=== PATIENT | male | born 1945 | race Caucasian/White ===

== ENCOUNTER 2020-05-01 11:18 | Outpatient (CLI) | payer MEDICARE, BC ==
[2020-05-01] MEDS ORDERED: Magnevist 469MG/ML 20 ML VIAL ONE (13:16)
--- NOTE | 2020-05-01 14:19 | MRI ---
MRI of thebrain with and without contrast: 05/01/2020 COMPARISON:07/04/2015 HISTORY:Melanoma, assess for intracranial metastatic disease TECHNIQUE: Multiplanar multisequence MR imaging of thebrain with and without contrast Findings:The diffusion weighted imaging demonstrates no evidence for acute infarction. The axial gradient echo imaging demonstrates no evidence for intracranial hemorrhage. There is a punctate focus of blooming artifact within the medial aspect of the parietal lobe posterio rly on the left with no corresponding FLAIR or T2 signal abnormality. No enhancement is seen in this region. This is favored to represent an area of calcification or could be associated with remote hemorrhage. The imaged paranasal sinuses and mastoid air cells demonstrate no signal abnormality. Arterial flow v oids at the axial level of the skull base are unremarkable on the T2-weighted imaging. Postcontrast imaging demonstrates no abnormal enhancement within the brain parenchyma to suggest the presence of intra-axial metastatic disease. Regional bone marrow signal intensity appears grossly unremarkable. IMPRESSION:No evidence for intracranial metastatic disease.
--- NOTE | 2020-05-01 18:49 | PET ---
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 Metastatic disease. Initial staging. FINDINGS: Mild, diffuse hazy uptake throughout each lung likely correlates with tiny innumerable nodu les involving each lobe of each lung. The focus of greatest radiotracer uptake is at the posterior aspect of the left upper lobe max SUV 3.4. A nonenlarged subcarinal mediastinal lymph node shows max SUV 8.3. There are innumerable masses throughout the liver with increased radiotracer uptake, the largest and most intense abnormality of the liver is at the posterior aspect of the right lobe dome max SUV 13.5. An enlarged lymph node at the peripancreatic level, immediately posterior to the pancreatic hea d, shows max SUV 18.9. Within the posterior musculature of the right thigh, a small hyperintense focus at the lateral aspect of the biceps femoris shows max SUV 4.7 and within the right semimembranosus muscle max SUV 3.2. Extensive widespread hypermetabolic activity is present throughout the skeleton, including the thorac olumbar spine. Most of the vertebrae are involved. The area of most intense uptake involves the T4 vertebral body max SUV 6.0. While this list of skeletal lesions is incomplete, the areas of most conspicuous and hyper intense ac tivity are as follows (max SUV): Right humeral neck (7.1) Left humeral neck (4.6) Left humeral shaft distal (4.5) Manubrium right side (4.5) Sacrum right side (4.4) Right acetabulum superior (4.1) Right acetabulum posterior/inferior (7.2) Left acetabulum (3.6) Left ischium (4.8) IMPRESSION : Extensive widespread metastatic disease involving the lungs, mediastinum, liver and abdominal lymph n odes, skeleton, and right thigh musculature.
== END 2020-05-01 11:19 | disposition home or self-care (01) ==
LOC: PET 11:18
PROVIDERS: ATTEND Internal Medicine Hematology & Oncology
DX: C43.9 Malignant melanoma of skin, unspecified (principal); C78.02 Secondary malignant neoplasm of left lung; C78.01 Secondary malignant neoplasm of right lung; C78.7 Secondary malignant neoplasm of liver and intrahepatic bile duct; C77.2 Secondary and unspecified malignant neoplasm of intra-abdominal lymph nodes; C78.1 Secondary malignant neoplasm of mediastinum; C79.89 Secondary malignant neoplasm of other specified sites
CPT/HCPCS: 70553; 78816; A9552

== ENCOUNTER 2020-06-07 01:15 | Inpatient (IN) | payer MEDICARE, BC ==
[2020-06-07 18:02] LABS: #Basophils 0.1 thou/uL (0.0-0.2); #Eosinphils 0.5 thou/uL (0.0-0.7); #Lymphocytes 1.8 thou/uL (1.20-3.40); #Monocytes 1.1 thou/uL (0.11-0.59); #Neutrophils 7.5 thou/uL (1.40-6.50); %Basophils 0.8 % (0.0-1.0); %Eosinophils 4.2 % (0.0-10.0); %Lymphocytes 16.4 % (21.0-51.0); %Monocytes 9.8 % (0.0-10.0); %Neutrophils 68.8 % (42.0-75.0); Hemoglobin 10.3 g/dL (14.0-18.0); Mean Corpuscular HGB CONC 33.1 g/dL (32.0-36.0); Mean Corpuscular Hemoglobin 30.2 pg (27.0-31.0); Mean Corpuscular Volume 91.1 fL (78.0-98.0); Mean Platelet Volume 8.6 fL (7.4-10.4); Platelet Count 331 thou/uL (130-400); RBC Distribution Width 18.5 % (11.5-14.5); Red Blood Cell (RBC) Count 3.42 mill/uL (4.70-6.10); White Blood Cell (WBC) Count 10.9 thou/uL (4.8-10.8)
[2020-06-07 18:28] LABS: Magnesium 2.9 mg/dL (1.6-2.6)
[2020-06-07] MEDS ORDERED: HYDROcodone/Acetaminophen 7.5/325 mg Tablet PO PRN (18:28)
[2020-06-07] MEDS ORDERED: HYDROcodone/Acetaminophen 5/325 mg Tablet PO PRN (18:28)
[2020-06-07 18:40] LABS: Bacteria/HPF None Seen HPF (None Seen); Bilirubin Negative (Negative); Blood, Urine Negative (Negative); Clarity Clear (Clear); Glucose, Urine (Dipstick) Normal (Negative); Ketone, Urine Negative (Negative); Leukocyte Negative Leu/uL (Negative); Nitrite Negative (Negative); Protein, Urine (Dipstick) 30 mg/dL (Neg-Trace); RBC/HPF 0-3 HPF (0-3); Specific Gravity, Urine 1.019 (1.002-1.036); Squamous Epithelial 0-3 HPF (0-3); Urobilinogen Normal mg/dL (Less than 2); WBC/HPF 0-3 HPF (0-3); pH, Urine 5.5 (5.0-9.0)
[2020-06-07 20:26] VITALS: BMI 23.2
--- NOTE | 2020-06-07 20:34 | HP ---
CHIEF COMPLAINT: Abnormal labs. HISTORY OF PRESENT ILLNESS: A 75-year-old male with a history of melanoma diagnosed roughly seven years ago on the top of the skull, being treated now, presenting with metastatic melanoma that was diagnosed roughly five weeks ago, metastases to the spine, liver, spleen, and lungs. He is undergoing chemo. He is unsure how many chemo he has done this last five weeks. Because of the generalized weakness, he came to the cancer clinic and I believe Dr. Abraham seen him this afternoon because of the abnormalities. He is being transferred to the ER and will be admitted for tumor lysis syndrome. His electrolytes labs are significant for potassium of 6, creatinine 2.5, calcium of 5.7, phosphorus of 5.5. His uric acid is 12.6. He has received rasburicase one time dose in the ER. I am admitting him for further management. The patient for the last seven days is quite nauseated, not much p.o. intake, no appetite. REVIEW OF SYSTEMS: He did not have any fever, night sweats, or chills. No chest pain, productive cough. He is nauseated, but no abdominal pain. No constipation, diarrhea, hematuria, dysuria, or hematochezia. Denies headache, tingling, numbness, or blurriness in his extremities. ALLERGIES: HE IS ALLERGIC TO CLINDAMYCIN AND LEVAQUIN. PAST MEDICAL HISTORY: Melanoma diagnosed seven years ago on the top of the skull. Now recently five weeks ago, he was diagnosed with metastatic melanoma with metastases to the spine, liver, lungs, and spleen. MEDICATIONS: 1. Coenzyme Q10 of 200 mg daily. 2. Omeprazole 40 mg daily. 3. Triamterene/hydrochlorothiazide 37.5/25 tablet daily. 4. Omeprazole 40 mg daily. 5. Lisinopril 10 mg daily. 6. Levothyroxine 50 mcg daily. 7. Plavix 75 mg daily. 8. Celecoxib. 9. Coreg 12.5 daily. 10. Lipitor 80 mg daily. SOCIAL HISTORY: The patient does not smoke or drink alcohol. He lives with his ex-. FAMILY HISTORY: Noncontributory. PHYSICAL EXAMINATION: VITAL SIGNS: He is afebrile, normotensive. He is saturating 95% on the room air. GENERAL: He is ill looking, but very pleasant, conversational. HEENT: Pupils are equal, round, and reactive to light. Anicteric. Mucous membranes moist. On the top of his head, there is a scar che in the skull. CARDIOVASCULAR: Regular rate and rhythm without murmurs, rubs, or gallops. LUNGS: Clear to auscultation bilaterally without wheezing, rales, or rhonchi. ABDOMEN: Soft, nontender, and nondistended. Good bowel sounds. EXTREMITIES: Without any pitting edema or rash. LABORATORY DATA: Significant for creatinine of 2.5, potassium 6, uric acid 12.6, calcium 5.7, phosphorus 5.5. WBC 10.9, hemoglobin 10.3, platelets 331. Urine is clear. Magnesium is 2.9. IMPRESSION AND PLAN: This is a 75-year-old male with metastatic melanoma, presenting with, 1. Tumor lysis syndrome with several electrolyte abnormalities. Hyperkalemia, acute kidney injury, hypocalcemia. The patient received one dose of rasburicase. I talked with the pharmacist, we will arrange for another dose tomorrow. I consulted Dr. Patrick ashraf tomorrow for continuation of rasburicase, the standard would be likely for five-day treatment. 2. Aggressive IV hydration. Follow up with the urinalysis as well. Follow up with the electrolyte panels that I ordered. 3. Acute kidney injury secondary to tumor lysis syndrome. Again, aggressive hydration. I am going to hold his home medications of lisinopril, triamterene/hydrochlorothiazide, celecoxib for now. Provide hydralazine p.r.n. to keep the systolic below 150. 4. Hypothyroidism. Continue with levothyroxine. Home medications have to be reconciled before starting them. 5. Renal consult placed as well. 6. I will hold the deep venous thrombosis prophylaxis with heparin b.i.d. Job ID: [id number] [facility]
[2020-06-07] MEDS: Sodium Chloride 0.9% 1,000 ML IV SCH (21:19)
[2020-06-08] MEDS: Sodium Chloride 0.9% 1,000 ML IV SCH (03:35)
[2020-06-08 03:45] LABS: SARS-CoV-2 PCR by NAA Not Detected (NotDetected)
[2020-06-08 04:46] LABS: #Basophils 0.1 thou/uL (0.0-0.2); #Eosinphils 0.6 thou/uL (0.0-0.7); #Lymphocytes 1.5 thou/uL (1.20-3.40); #Neutrophils 6.1 thou/uL (1.40-6.50); %Basophils 0.6 % (0.0-1.0); %Eosinophils 6.8 % (0.0-10.0); %Lymphocytes 15.8 % (21.0-51.0); %Neutrophils 65.9 % (42.0-75.0); Mean Corpuscular HGB CONC 33.4 g/dL (32.0-36.0); Mean Corpuscular Hemoglobin 30.4 pg (27.0-31.0); Mean Corpuscular Volume 90.9 fL (78.0-98.0); Mean Platelet Volume 8.5 fL (7.4-10.4); Platelet Count 320 thou/uL (130-400); RBC Distribution Width 18.6 % (11.5-14.5); Red Blood Cell (RBC) Count 3.28 mill/uL (4.70-6.10); White Blood Cell (WBC) Count 9.3 thou/uL (4.8-10.8)
[2020-06-08 05:05] LABS: Anion Gap 16 mmol/L (10-20); BUN (Urea Nitrogen) 87 mg/dL (8.4-25.7); CK (CPK) 40 U/L (30-200); Calc. Creatinine Clearance 26 mL/min (70-130); Calcium 6.3 mg/dL (7.8-10.44); Carbon Dioxide 17 mmol/L (23-31); Chloride 110 mmol/L (98-107); Glucose 93 mg/dL (83-110); Potassium 5.3 mmol/L (3.5-5.1); Sodium 138 mmol/L (136-145); Uric Acid 11.7 mg/dL (3.5-7.2)
[2020-06-08] MEDS ORDERED: RASBURICASE IVPB SCH (09:00)
[2020-06-08] MEDS ORDERED: Carvedilol 6.25 MG TAB PO SCH (09:00)
[2020-06-08] MEDS ORDERED: SODIUM CHLORIDE 0.9% IVPB SCH (09:00)
[2020-06-08] MEDS ORDERED: FLU VACC QS2020-21(65YR UP)/PF 240 MCG/0.7 ML SYRINGE IM ONE (09:00)
[2020-06-08] MEDS ORDERED: Calcium Gluconate 4.6 MEQ in Sodium Chloride 0.9% 100 ML IVPB SCH (10:00)
[2020-06-08] MEDS: Sodium Bicarbonate 150 MEQ in Dextrose 5% in Water 1,000 ML IV SCH (11:27)
--- NOTE | 2020-06-08 11:51 | CON ---
DATE OF CONSULTATION: REASON FOR CONSULTATION: Elevated creatinine and hyperkalemia. HISTORY OF PRESENTING ILLNESS: This is a very pleasant 75-year-old gentleman, presented to the hospital last night after having tumor lysis syndrome. The patient, at this time, denies any nausea, vomiting, or chest pain. The patient was noted to have a potassium of 6, so I was consulted. PAST MEDICAL HISTORY: Significant for melanoma with metastasis, history of hypertension, history of hypothyroidism, and history of chemotherapy. HOME MEDICATIONS: List reviewed. HOSPITAL MEDICATIONS: Reviewed. ALLERGIES: REVIEWED. REVIEW OF SYSTEMS: 15-point review of systems was performed and negative except for positives noted above. HEENT: Eyes intact, no diplopia. Ears: No hearing loss or earache. Nose: No discharge or bleeding. CHEST: No cough or phlegm. ABDOMEN: No nausea or vomiting. GENITOURINARY: No hematuria. No Shirley catheter. MUSCULOSKELETAL: No low back pain. No joint swelling or pain. NEUROLOGICAL: No syncope. No seizures. SKIN: No complaints of rash or itching. PSYCHIATRIC: No depression. CONSTITUTIONAL: No weight loss or loss of appetite. PHYSICAL EXAMINATION: GENERAL: The patient is awake and alert. VITAL SIGNS: Afebrile, pulse 75, breathing at 16, blood pressure 101/55. HEENT: Head normocephalic and atraumatic. Eyes intact, no ulcers. Nose intact, no ulcers. Ears intact, no ulcers. NECK: Supple. No JVD. CHEST: Symmetrical and clear. CARDIOVASCULAR: Shows S1 and S2, no rub, no murmur. GASTROINTESTINAL: Abdomen is soft, bowel sounds positive. EXTREMITIES: Show no edema or ulcers. SKIN: Shows no rash or petechiae. MUSCULOSKELETAL: Shows no joint swelling or stiffness. GENITOURINARY: Shows no Shirley or CVA tenderness. NEUROLOGIC: Motor intact. Cranial nerves intact. LABORATORY DATA: reviewed. ASSESSMENT: 1. Acute kidney injury with chronic kidney disease, improved. 2. Hypertension, stable. 3. Anemia, stable. 4. Hyperkalemia. We will recheck potassium. I would recommend avoiding lisinopril and triamterene. 5. Avoid Celecoxib as an outpatient. 6. Medications based on GFR are appropriate in the hospital. 7. Hypocalcemia. Recommend calcium supplementation with meals. 8. Hyperuricemia, management per primary team. Job ID: [id number]
--- NOTE | 2020-06-08 16:27 | PDOC.HOSPP ---
- Subjective Encounter Date: 06/08/20 Encounter Time: 16:25 Subjective: F/u: tumor lysis The patent states that he went to see a GI doctor for abnormal bowel movements and didn't think much of it. They did CT scan and found recurrence of melanoma in liver, spleen, spine and lungs. He was started on chemotherapy and admitted for tumor lysis syndrome He denies any cramps but reports feeling weak and poor appetite. He has mild abdominal discomfort - Objective Vital Signs & Weight: Vital Signs (12 hours) Temp Pulse Resp BP Pulse Ox 06/08/20 16:05 97.2 F L 71 18 109/54 L 95 06/08/20 11:45 98.7 F 69 16 96/53 L 93 L 06/08/20 07:16 97.7 F 71 95 H 101/50 L 95 06/08/20 07:15 95 Weight Weight 145 lb 1.6 oz I&O: 06/07/20 06/08/20 06/09/20 06:59 06:59 06:59 Intake Total 150 Output Total 400 Balance -250 Result Diagrams: 06/08/20 04:25 06/08/20 04:25 Hospitalist ROS - Review of Systems Constitutional: denies: fever, chills - Medication Medications: Active Medications Generic Name Dose Route Start Last Admin Trade Name Amanq PRN Reason Stop Dose Admin Carvedilol 12.5 mg 06/08/20 09:00 06/08/20 09:09 Carvedilol 6.25 Mg Tab PO 12.5 mg DAILY TANJA Administration Sodium Bicarbonate 150 meq/ 1,150 mls @ 100 mls/hr 06/08/20 09:30 06/08/20 1 1:27 Dextrose/Water IV 1,150 mls .[id number] TANJA Administration Pantoprazole Sodium 40 mg 06/08/20 09:00 06/08/20 09:09 Pantoprazole 40 Mg Tab PO 40 mg DAILY TANJA Administration - Exam General Appearance: NAD, awake alert General - other findings: alopecia Eye: PERRL, anicteric sclera ENT: normocephalic atraumatic, no oropharyngeal lesions Neck: no JVD Heart: RRR, no murmur, no gallops, no rubs Respiratory: CTAB, no wheezes, no rales, no ronchi Gastrointestinal: soft, non-tender, non-distended, normal bowel sounds Gastrointestinal - other findings: hepatomegaly Extremities: no cyanosis, no clubbing, no edema Skin: normal turgor, no lesions, no rashes Hosp A/P - Plan This is a 75 year old male with recurrent metastatic melanoma admitted for tumor lysis syndrome #Tumor Lysis syndrome #Acute Kidney Injury #Hyperkalemia - potassium 5.3. Started on IV fluids. Nephrology has been consulted. Will repeat BMP Hypocalcemia - calcium 6.2, given calcium gluconate and will recheck Hypermagnesemia - mag level 2.9. Will repeat Metastatic melanoma - is getting chemotherapy as an outpatient
[2020-06-08 17:33] LABS: Anion Gap 17 mmol/L (10-20); BUN (Urea Nitrogen) 79 mg/dL (8.4-25.7); Calc. Creatinine Clearance 29 mL/min (70-130); Calcium 6.3 mg/dL (7.8-10.44); Carbon Dioxide 15 mmol/L (23-31); Chloride 112 mmol/L (98-107); Glucose 107 mg/dL (83-110); Magnesium 2.6 mg/dL (1.6-2.6); Sodium 139 mmol/L (136-145)
--- NOTE | 2020-06-08 18:53 | CON ---
DATE OF CONSULTATION: REASON FOR CONSULT: Metastatic melanoma and tumor lysis syndrome. HISTORY OF PRESENT ILLNESS: Mr. Sosa is a pleasant 75-year-old gentleman who had right occipital melanoma in 2011, it was resected. Unfortunately, it recurred in the liver, spleen, lung, bones, and thigh in March 2020. He was started on immune checkpoint inhibitors, Yervoy and Opdivo. He received a second dose on May 22. He presented to the clinic yesterday for followup. He complained of poor appetite, rash, constipation. Labs drawn were consistent with tumor lysis syndrome. His potassium was 6, uric acid was 12.6, calcium was 6.7, phosphorus 5.5, and creatinine was 2.52. He was referred to the ER for management. He was given rasburicase yesterday. He was seen at bedside and appears in good spirits. He denies any pain. He is continuing to have constipation. PAST MEDICAL HISTORY: 1. Metastatic melanoma. 2. Hypertension. 3. Hyperlipidemia. 4. Osteoarthritis. 5. Peptic ulcer disease. 6. Coronary artery disease. PAST SURGICAL HISTORY: Hip replacement. ALLERGIES: NO KNOWN DRUG ALLERGIES. HOME MEDICATIONS: 1. Advair. 2. Hydralazine. 3. Megestrol. 4. Tramadol. 5. Triamterene and hydrochlorothiazide. FAMILY HISTORY: No history of malignancy. SOCIAL HISTORY: , lives with his spouse. A 20 pack-year history of remote smoking. No alcohol or illicit drug use. REVIEW OF SYSTEMS: A 10-point review of systems is negative except for noted in HPI. PHYSICAL EXAMINATION: VITAL SIGNS: Temperature is 98.7, pulse is 69, respiratory rate 16, BP is 96/53. He is 95% on room air. GENERAL: This is a well-developed, well-nourished male, in no acute distress. HEENT: Normocephalic and atraumatic. Pupils are equal and reactive to light. NECK: Supple. CV: Regular rate and rhythm. LUNGS: Clear. ABDOMEN: Distended. He does have palpable liver. Bowel sounds are active. EXTREMITIES: No clubbing or cyanosis. NEUROLOGIC: Nonfocal. PERTINENT LABORATORY DATA AND X-RAYS: WBCs 9.3, hemoglobin 10, hematocrit 29.8, platelet count 320. 66% neutrophils, 15% lymphocytes, 11% monocytes. Sodium 138, potassium 5.3, chloride 110, CO2 of 17, BUN is 16, creatinine 2.19, uric acid is 11.7, calcium 6.3, magnesium 2.9. Urine and COVID PCR negative. ASSESSMENT: 1. Metastatic melanoma, on immune checkpoint inhibitors. 2. Tumor lysis syndrome. DISCUSSION: The patient has been started on IV fluids. His kidney function has improved with hydration. Appreciate Nephrology's assistance. His uric acid has improved with rasburicase, but remains elevated. We will continue daily labs and hydration for now. Hopefully, it will improve over the next day or two. Case has been discussed with Dr. Abraham. Thank you for the consult. Job ID: [id number]
[2020-06-09] MEDS: Sodium Bicarbonate 150 MEQ in Dextrose 5% in Water 1,000 ML IV SCH ×2 (01:13→12:01)
[2020-06-09 04:08] LABS: Hemoglobin 9.3 g/dL (14.0-18.0); Mean Corpuscular HGB CONC 32.9 g/dL (32.0-36.0); Mean Corpuscular Hemoglobin 29.9 pg (27.0-31.0); Mean Corpuscular Volume 90.8 fL (78.0-98.0); Mean Platelet Volume 8.6 fL (7.4-10.4); Platelet Count 307 thou/uL (130-400); RBC Distribution Width 18.7 % (11.5-14.5); Red Blood Cell (RBC) Count 3.12 mill/uL (4.70-6.10); White Blood Cell (WBC) Count 9.3 thou/uL (4.8-10.8)
[2020-06-09 04:35] LABS: Anion Gap 14 mmol/L (10-20); BUN (Urea Nitrogen) 75 mg/dL (8.4-25.7); Calc. Creatinine Clearance 28 mL/min (70-130); Calcium 6.5 mg/dL (7.8-10.44); Carbon Dioxide 23 mmol/L (23-31); Chloride 108 mmol/L (98-107); Glucose 108 mg/dL (83-110); Magnesium 2.6 mg/dL (1.6-2.6); Potassium 5.1 mmol/L (3.5-5.1); Sodium 140 mmol/L (136-145); Uric Acid Less than 2.0 mg/dL (3.5-7.2)
[2020-06-09 04:43] LABS: Phosphorus 4.1 mg/dL (2.3-4.7)
[2020-06-09] MEDS: Calcium Carbonate 500 MG TAB PO SCH ×2 (09:18→15:55)
[2020-06-09] MEDS: Ondansetron PF 4 MG/2 ML Vial IVP PRN ×2 (09:22→20:37)
[2020-06-09] MEDS: Senokot S 8.6-50 MG TAB PO PRN (09:22)
[2020-06-09] MEDS: Sodium Chloride 0.9% 1,000 ML IV SCH ×2 (13:54→23:36)
--- NOTE | 2020-06-09 16:01 | PDOC.HOSPP ---
- Subjective Encounter Date: 06/09/20 Encounter Time: 15:59 Subjective: F/u: tumor lysis syndrome Patient has no new complaints. He still reports poor appetite. He feels that his liver is swollen which is causing him discomfort. [place] any nausea, vomiting or cramps - Objective Vital Signs & Weight: Vital Signs (12 hours) Temp Pulse Pulse Pulse Resp BP BP 06/09/20 11:30 98.7 F 75 16 06/09/20 10:25 75 80 103/53 L 103/51 L 06/09/20 07:00 98.3 F 73 16 06/09/20 04:00 97.9 F 73 20 BP Pulse Ox 06/09/20 11:30 104/53 L 95 06/09/20 10:25 06/09/20 07:00 108/56 L 94 L 06/09/20 04:00 104/50 L 93 L Weight Weight 148 lb 6.4 oz I&O: 06/08/20 06/09/20 06/10/20 06:59 06:59 06:59 Intake Total 150 1771 Output Total 400 600 Balance -250 1171 Result Diagrams: 06/09/20 03:28 06/09/20 03:28 Hospitalist ROS - Review of Systems Constitutional: denies: fever, chills - Medication Medications: Active Medications Generic Name Dose Route Start Last Admin Trade Name Freq PRN Reason Stop Dose Admin Calcium Carbonate 500 mg 06/09/20 08:00 06/09/20 15:55 Calcium Carbonate 500 Mg Tab PO 500 mg BID-WM TANJA Administration Sodium Chloride 1,000 mls @ 100 mls/hr 06/09/20 13:15 06/09/20 13:54 Normal Saline 0.9% IV 1,000 mls .Q10H TANJA Administration Ondansetron HCl 4 mg 06/07/20 18:29 06/09/20 09:22 Ondansetron Pf 4 Mg/2 Ml Vial IVP 4 mg Q6H PRN Administration Nausea/Vomiting Pantoprazole Sodium 40 mg 06/08/20 09:00 06/09/20 09:18 Pantoprazole 40 Mg Tab PO 40 mg DAILY TANJA Administration Senna/Docusate Sodium 2 tab 06/07/20 18:28 06/09/20 09:22 Senokot S 8.6-50 Mg Tab PO 2 tab BIDPRN PRN Administration Constipation - Exam General Appearance: NAD, awake alert Eye: PERRL, anicteric sclera ENT: normocephalic atraumatic, no oropharyngeal lesions Neck: no JVD Heart: RRR, no murmur, no gallops, no rubs Respiratory: CTAB, no wheezes, no rales, no ronchi Gastrointestinal: soft, non-tender, normal bowel sounds Gastrointestinal - other findings: Palpable liver and spleen. Extremities: no cyanosis, no clubbing, no edema Skin: normal turgor, no lesions, no rashes Hosp A/P - Plan This is a 75 year old male with recurrent metastatic melanoma admitted for tumor lysis syndrome #Tumor Lysis syndrome #Acute Kidney Injury #Hyperkalemia - resolved - potassium down to 5.1. Creatinine is still 2. Fluids switched to normal saline. Will repeat creatinine tomorrow Abdominal distension/Hepatomegaly - will check US of the abdomen due to poor appetite and enlarged liver on exam . Check LFTs Hypocalcemia - calcium 6.5. Started on calcium supplemets. Will check albumin and see if patient needs more replacement Hypermagnesemia - resolved Metastatic melanoma - is getting chemotherapy as an outpatient
--- NOTE | 2020-06-09 16:36 | PRG ---
DATE OF SERVICE: 06/09/2020 SUBJECTIVE: A 75-year-old gentleman, being seen for acute kidney injury. The patient denied nausea, vomiting, or chest pain. OBJECTIVE: General: The patient is awake and alert. Vital Signs: Afebrile, pulse 75, breathing at 16, blood pressure 104/53. HEENT: Head normocephalic and atraumatic. Eyes intact, no ulcers. Nose intact, no ulcers. Ears intact, no ulcers. Neck: Supple. No JVD. Chest: Symmetrical and clear. Cardiovascular: Shows S1 and S2, no rub, no murmur. Gastrointestinal: Abdomen is soft, bowel sounds positive. Extremities: Show no edema or ulcers. Skin: Shows no rash or petechiae. Musculoskeletal: Shows no joint swelling or stiffness. Genitourinary: Shows no Shirley or CVA tenderness. Neurologic: Motor intact. Cranial nerves intact. LABORATORY DATA: Hemoglobin 9.3. Potassium was 5.1, creatinine 2.0. ASSESSMENT AND PLAN: 1. Acute kidney injury with chronic kidney disease stage 3, improved. 2. Hypertension, stable. 3. Anemia, stable. 4. Medication based on GFR appropriate. 5. Hyperkalemia, improved. 6. Metabolic acidosis, improved. No indication for dialysis. We will follow renal function closely. Job ID: [id number]
[2020-06-09 16:57] LABS: ALT (SGPT) 29 U/L (8-55); AST (SGOT) 46 U/L (5-34); Albumin 1.9 g/dL (3.4-4.8); Alkaline Phosphatase 425 U/L (40-110); Bilirubin, Direct 0.5 mg/dL (0.1-0.3); Bilirubin, Total 0.7 mg/dL (0.2-1.2); Protein, Total 5.1 g/dL (5.8-8.1)
[2020-06-10 04:50] LABS: Anion Gap 14 mmol/L (10-20); BUN (Urea Nitrogen) 62 mg/dL (8.4-25.7); Calc. Creatinine Clearance 32 mL/min (70-130); Carbon Dioxide 23 mmol/L (23-31); Chloride 108 mmol/L (98-107); Glucose 87 mg/dL (83-110); Potassium 3.8 mmol/L (3.5-5.1); Sodium 141 mmol/L (136-145)
[2020-06-10 04:57] LABS: Calcium 5.9 mg/dL (7.8-10.44)
--- NOTE | 2020-06-10 08:07 | ULT ---
ULTRASOUND ABDOMEN: Date: 06/09/2020 HISTORY: Abdominal swelling. Metastatic malignant melanoma of scalp and neck. FINDINGS: Numerous masses are seen in the liver consistent with metastatic disease. Multiple masses are also se en in the spleen consistent with metastatic disease. The spleen measures 14.0 mm in length. The visua lized portions of the pancreas are unremarkable. No gallstones are seen. There is gallbladder wall th ickening. Focal nodularity in the gallbladder is also suspicious for metastatic disease. The kidneys are unremarkable. The visualized portions of the aorta and IVC are unremarkable. There is free fluid in the abdomen consistent with ascites. The common duct measures 4.0 mm in diameter. IMPRESSION: Findings are consistent with metastatic disease. POS: OFF
[2020-06-10] MEDS ORDERED: Calcium Chloride 1 GM/10 ML Abboject SYRINGE IVP SCH (08:15)
[2020-06-10] MEDS: Senokot S 8.6-50 MG TAB PO PRN (08:21)
[2020-06-10] MEDS: Calcium Carbonate 500 MG TAB PO SCH ×2 (08:21→16:42)
[2020-06-10] MEDS: Sodium Chloride 0.9% 1,000 ML IV SCH ×2 (08:58→17:25)
[2020-06-10] MEDS ORDERED: Ondansetron PF 4 MG/2 ML Vial SLOW IVP PRN (09:16)
--- NOTE | 2020-06-10 12:28 | PDOC.MOPN ---
Interval History: Pt feeling ok today, but c/o nausea not controlled with zofran 4 mg. Still has abdominal discomfort. Feels hungry.. Walking around the room. - Vital Signs Vital Signs: Vital Signs (12 hours) Temp Pulse Resp BP Pulse Ox 06/10/20 11:06 98 F 81 12 101/52 L 93 L 06/10/20 08:00 98.0 F 77 16 112/56 L 94 L 06/10/20 04:00 97.8 F 79 20 100/52 L 90 L Weight Weight 148 lb 6.4 oz - Physical Exam General: Alert, Oriented x3, Cooperative HEENT: EOMI Lungs: Normal air movement Cardiovascular: Regular rate Abdomen: Other (diffusely swollen abdomen) Extremities: Other (2+ B/L LE edema) Neurological: Cranial nerves 3-12 NL Psych/Mental Status: Other - Labs Result Diagrams: 06/09/20 03:28 06/10/20 03:39 Lab results: Laboratory Results - last 24 hr 06/10/20 03:39: Magnesium 2.3 06/10/20 03:39: Sodium 141, Potassium 3.8, Chloride 108 H, Carbon Dioxide 23, Anion Gap 14, BUN 62 H, Creatinine 1.85 H, Estimated GFR (MDRD) 36, Glucose 87, Calcium 5.9 L* 06/09/20 03:28: Total Bilirubin 0.7, Direct Bilirubin 0.5 H, AST 46 H, ALT 29, Alkaline Phosphatase 425 H, Serum Total Protein 5.1 L, Albumin 1.9 L A/P - Problem (1) Melanoma Current Visit: Yes Code(s): C43.9 - MALIGNANT MELANOMA OF SKIN, UNSPECIFIED Status: Acute (2) Tumor lysis syndrome Current Visit: Yes Code(s): E88.3 - TUMOR LYSIS SYNDROME Status: Acute - Plan Plan: Cont IVF - kidneys improving increase zofran 4 > 8 mg start allopurinol at discharge f/u in clinic - will likely postpone next cycle 1 week
--- NOTE | 2020-06-10 15:31 | PDOC.HOSPP ---
- Subjective Encounter Date: 06/10/20 Encounter Time: 11:00 Subjective: F/u: tumor lysis The patient reports diminished appetite still due to abdominal bloating. He had US that showed some ascites, but multiple liver and splenic metastases. He denies nausea or vomiting. He denies muscle cramps, parasthesias - Objective Vital Signs & Weight: Vital Signs (12 hours) Temp Pulse Resp BP Pulse Ox 06/10/20 15:13 98.8 F 80 15 110/58 L 93 L 06/10/20 11:06 98 F 81 12 101/52 L 93 L 06/10/20 08:00 98.0 F 77 16 112/56 L 94 L 06/10/20 04:00 97.8 F 79 20 100/52 L 90 L Weight Weight 148 lb 6.4 oz I&O: 06/09/20 06/10/20 06/11/20 06:59 06:59 06:59 Intake Total 1771 2950 Output Total 600 1225 Balance 1171 1725 Result Diagrams: 06/09/20 03:28 06/10/20 03:39 Hospitalist ROS - Review of Systems Constitutional: denies: fever, chills - Medication Medications: Active Medications Generic Name Dose Route Start Last Admin Trade Name Freq PRN Reason Stop Dose Admin Calcium Carbonate 500 mg 06/09/20 08:00 06/10/20 08:21 Calcium Carbonate 500 Mg Tab PO 500 mg BID-WM TANJA Administration Sodium Chloride 1,000 mls @ 100 mls/hr 06/09/20 13:15 06/10/20 08:58 Normal Saline 0.9% IV 1,000 mls .Q10H TANJA Administration Pantoprazole Sodium 40 mg 06/08/20 09:00 06/10/20 08:21 Pantoprazole 40 Mg Tab PO 40 mg DAILY TANJA Administration Senna/Docusate Sodium 2 tab 06/07/20 18:28 06/10/20 08:21 Senokot S 8.6-50 Mg Tab PO 2 tab BIDPRN PRN Administration Constipation - Exam General Appearance: NAD, awake alert Eye: PERRL, anicteric sclera ENT: normocephalic atraumatic, no oropharyngeal lesions Neck: no JVD Heart: RRR, no murmur, no gallops, no rubs Respiratory: CTAB, no wheezes, no rales, no ronchi Gastrointestinal: soft Gastrointestinal - other findings: hepatomegaly. Abdomen tympanic to percussion . Mild tenderness Extremities: no cyanosis, no clubbing, no edema Skin: normal turgor, no lesions, no rashes Hosp A/P - Plan Abdominal US: metastatic disease. Multiple masses in the spleen and numerous liver masses. No gallstones. Gallbladder wall thickening. Focal nodularity in the gallbladder consistent with metastases. Mild ascites in the abdomen This is a 75 year old male with recurrent metastatic melanoma admitted for tumor lysis syndrome #Tumor Lysis syndrome #Acute Kidney Injury #Hyperkalemia - resolved - potassium has normalized. Creatinine is down to 1.8. Continue IV fluids until creatinine has normalized Abdominal distension/Hepatomegaly - likely from liver metastases - uS abdomen showed multiple liver and splenic metastases. Also has possible gallbladder metastases. LFT shows elevated ALP and mild AST elevation of 46 Hypocalcemia - calcium 5.9. Got 1 gram calcium gluconate. Will repeat calcium level . Vitamin d level normal Hypermagnesemia - resolved Metastatic melanoma - is getting chemotherapy as an outpatient
[2020-06-10 16:08] LABS: Calcium 6.6 mg/dL (7.8-10.44)
--- NOTE | 2020-06-10 18:10 | PRG ---
DATE OF SERVICE: 06/10/2020 SUBJECTIVE: Patient was seen and examined at bedside and overnight events noted. Patient denies any shortness of breath or chest pain or palpitation. No history of nausea or vomiting or diarrhea or fever or chills or cramps. OBJECTIVE: GENERAL: This is a well-built , in no apparent distress. VITAL SIGNS: Temperature 98.2, pulse 81, respiration rate 18, blood pressure 124/58. HEENT: Atraumatic, normocephalic. Oral mucosa is moist. NECK: Supple. CARDIOVASCULAR: S1, S2 heard. Rate and rhythm regular. RESPIRATORY: Clear to auscultation. GASTROINTESTINAL: Abdomen is soft. MUSCULOSKELETAL: No tenderness. No edema. DERMATOLOGIC: No skin rash. NEUROLOGIC: Alert and awake and oriented x3. No focal neurologic deficits. Moving all the extremities. PSYCHIATRIC: Mood and affect normal. LABORATORY DATA: Potassium 3.8, BUN 62, and creatinine 1.8. ASSESSMENT AND PLAN: 1. Acute kidney injury on chronic kidney disease stage 3, improved. 2. History of hypertension. 3. Anemia of chronic disease. 4. Hyperkalemia, better. 5. Tumor lysis syndrome - tolerating Rasburicase. will monitor closely. Monitor labs. Avoid nephrotoxins. We will follow. Job ID: [id number] [facility] CENTERGregory
[2020-06-11] MEDS: Sodium Chloride 0.9% 1,000 ML IV SCH ×3 (02:58→23:19)
[2020-06-11] MEDS: Levothyroxine Sodium 50 MCG TAB PO SCH (06:10)
[2020-06-11] MEDS: Clopidogrel Bisulfate 75 MG TAB PO SCH ×2 (07:08→08:33)
--- NOTE | 2020-06-11 08:26 | PDOC.MOPN ---
Interval History: Pt feels ok today, no nausea last 24 hours. He is itching since a "calcium injection" yesterday. He had itching for a long time but was improving until the shot. He took atarax outpt but said it didn't help. He walked the [place] with PT yesterday and felt very tired and winded afterward. No problems going to and from bathroom. Not sitting in a chair during the day. Labs not drawn this morning. - Vital Signs Vital Signs: Vital Signs (12 hours) Temp Pulse Resp BP Pulse Ox 06/11/20 07:21 99.2 F 77 16 107/59 L 92 L 06/11/20 04:00 98.1 F 77 16 98/50 L 93 L 06/10/20 23:54 98.0 F 78 16 99/57 L 93 L Weight Weight 160 lb 6.4 oz - Physical Exam General: Alert, Oriented x3, Cooperative HEENT: EOMI Lungs: Clear to auscultation Cardiovascular: Regular rate Abdomen: Other (swollen abdomen) Extremities: Other (2+ B/L LE edema) Neurological: Cranial nerves 3-12 NL Psych/Mental Status: Mood NL - Labs Result Diagrams: 06/09/20 03:28 06/10/20 15:42 Lab results: Laboratory Results - last 24 hr 06/10/20 15:42: Creatinine 1.94 H, Estimated GFR (MDRD) 34, Calcium 6.6 L 06/10/20 12:44: 25-OH Vitamin D Total 30.4 06/10/20 03:39: Magnesium 2.3 A/P - Problem (1) Melanoma Current Visit: Yes Code(s): C43.9 - MALIGNANT MELANOMA OF SKIN, UNSPECIFIED Status: Acute (2) Tumor lysis syndrome Current Visit: Yes Code(s): E88.3 - TUMOR LYSIS SYNDROME Status: Acute - Plan Plan: Cont IVF check labs now zofran prn nausea cont PT OOB to chair Ok to DC home when nephrology clears patient start allopurinol at discharge, renally-dosed
[2020-06-11] MEDS: Calcium Carbonate 500 MG TAB PO SCH ×2 (08:33→16:14)
[2020-06-11] MEDS: Multivit, Therapeutic 1 TAB PO SCH (08:33)
[2020-06-11 09:54] LABS: Anion Gap 13 mmol/L (10-20); BUN (Urea Nitrogen) 56 mg/dL (8.4-25.7); Calc. Creatinine Clearance 36 mL/min (70-130); Calcium 6.5 mg/dL (7.8-10.44); Carbon Dioxide 22 mmol/L (23-31); Chloride 111 mmol/L (98-107); Glucose 122 mg/dL (83-110); Magnesium 2.3 mg/dL (1.6-2.6); Potassium 4.2 mmol/L (3.5-5.1); Sodium 142 mmol/L (136-145)
--- NOTE | 2020-06-11 10:58 | PDOC.HOSPP ---
- Subjective Encounter Date: 06/11/20 Encounter Time: 07:45 Subjective: F/u: tumor lysis syndrome Mr. Sosa feels the same as yesterday. No changes to report, and no overnight events. He was awake and alert watching TV when we spoke. In the afternoon, the patient had an episode of explosive diarrhea. He states his stool was all over the crowder. The patient reports that he has been having 3-4 bowel movements daily and described them as beatrice, not particularly water. He has not taken antibiotics in the past one year. He denies eating at any outside restaurants and states that his ex- cooks for him regularly. - Objective Vital Signs & Weight: Vital Signs (12 hours) Temp Pulse Resp BP Pulse Ox 06/11/20 08:00 92 L 06/11/20 07:21 99.2 F 77 16 107/59 L 92 L 06/11/20 04:00 98.1 F 77 16 98/50 L 93 L 06/10/20 23:54 98.0 F 78 16 99/57 L 93 L Weight Weight 160 lb 6.4 oz I&O: 06/10/20 06/11/20 06/12/20 06:59 06:59 06:59 Intake Total 2950 605 Output Total 1225 100 Balance 1725 505 Result Diagrams: 06/09/20 03:28 06/11/20 09:21 Hospitalist ROS - Review of Systems Constitutional: denies: fever, chills - Medication Medications: Active Medications Generic Name Dose Route Start Last Admin Trade Name Freq PRN Reason Stop Dose Admin Calcium Carbonate 500 mg 06/09/20 08:00 06/11/20 08:33 Calcium Carbonate 500 Mg Tab PO 500 mg BID-WM TANJA Administration Clopidogrel Bisulfate 75 mg 06/10/20 09:00 06/11/20 08:33 Clopidogrel Bisulfate 75 Mg Tab PO 75 mg DAILY TANJA Administration Sodium Chloride 1,000 mls @ 100 mls/hr 06/09/20 13:15 06/11/20 02:58 Normal Saline 0.9% IV 1,000 mls .Q10H TANJA Administration Levothyroxine Sodium 50 mcg 06/11/20 06:00 06/11/20 06:10 Levothyroxine Sodium 50 Mcg Tab PO 50 mcg 0600 TANJA Administration Multivitamins 1 tab 06/11/20 09:00 06/11/20 08:33 Multivit, Therapeutic 1 Tab PO 1 tab DAILY TANJA Administration Pantoprazole Sodium 40 mg 06/08/20 09:00 06/11/20 08:33 Pantoprazole 40 Mg Tab PO 40 mg DAILY TANJA Administration - Exam General Appearance: NAD, awake alert. negative: ill appearing ENT: normocephalic atraumatic Heart: RRR Respiratory: CTAB Gastrointestinal: non-tender, normal bowel sounds Gastrointestinal - other findings: abdomen distended with hepatomegaly Extremities: no cyanosis, no clubbing, no edema Skin: normal turgor, no lesions, no rashes Psychiatric: normal affect, normal behavior, A&O x 3 Hosp A/P - Plan Abdominal US: metastatic disease. Multiple masses in the spleen and numerous liver masses. No gallstones. Gallbladder wall thickening. Focal nodularity in the gallbladder consistent with metastases. Mild ascites in the abdomen This is a 75 year old male with recurrent metastatic melanoma admitted for tumor lysis syndrome #Tumor Lysis syndrome #Acute Kidney Injury #Hyperkalemia - resolved - potassium has normalized. Creatinine 1.79. Continue IV fluids. Abd US showed no cortical thinning of kidneys and no hydronephrosis. Per nephrology, patient could possibly be discharged but patient prefers to stay one more day so will recheck creatinine in the am Diarrhea - will send stool cultures, C diff, ova and parasites . Discontinued laxatives Abdominal distension/Hepatomegaly - likely from liver metastases - uS abdomen showed multiple liver and splenic metastases. Also has possible gallbladder metastases. LFT shows elevated ALP and mild AST elevation of 46. Will repeat LFTS tomorrow Hypocalcemia - calcium 6.5, up from 5.9 yesterday. Corrected calcium is 7.8. Hypermagnesemia - resolved Metastatic melanoma - is getting chemotherapy as an outpatient Attending addendum: I have seen and examined the patient with the medical student. The patient had no complaints aside from diarrhea and weakness Exam: unchanged with abdominal distension and hepatomegaly RADHA- improving to 1.79 with fluids. Baseline ranges from 1.1 to 1.5. Will continue fluids due to diarrhea and if creatinine stable, will consider d/c in am Hypocalcemia - resolved
[2020-06-11] MEDS ORDERED: Calcium Gluconate 4.6 MEQ in Sodium Chloride 0.9% 100 ML IVPB SCH (11:00)
[2020-06-11] MEDS ORDERED: Loperamide HCl 1 MG/7.5 ML UDCUP PO PRN (17:40)
--- NOTE | 2020-06-11 18:14 | PRG ---
DATE OF SERVICE: 06/11/2020 SUBJECTIVE: Patient was seen and examined at bedside and overnight events noted. Patient denies any shortness of breath or chest pain or palpitation. No history of nausea or vomiting or diarrhea or fever or chills or cramps. OBJECTIVE: General: This is a well-built male, in no apparent distress. Vital Signs: Temperature 97.7. Heart Rate 83. Respiratory rate 16. Blood pressure 112/61. HEENT: Atraumatic, normocephalic. Oral mucosa is moist. Neck: Supple. Cardiovascular: S1, S2 heard. Rate and rhythm regular. Respiratory: Clear to auscultation. Gastrointestinal: Abdomen is soft. Musculoskeletal: No tenderness. No edema. Dermatologic: No skin rash. Neurologic: Alert and awake and oriented x3. No focal neurologic deficits. Moving all the extremities. Psychiatric: Mood and affect normal. LABORATORY DATA: Potassium 4.2, BUN is 56, creatinine is 1.7. ASSESSMENT AND PLAN: 1. Acute kidney injury on chronic kidney stage 3, stable. 2. Edema. 3. History of hypertension. 4. Anemia of chronic disease. 5. Tumor lysis syndrome. 6. Hypocalcemia, stable. Continue supplements. 7. Renal function is slowly getting better. Avoid nephrotoxins and agree with hydration and start allopurinol when tolerated. We will follow. Job ID: [id number]
[2020-06-12] MEDS: Levothyroxine Sodium 50 MCG TAB PO SCH (05:51)
[2020-06-12 06:55] LABS: Anion Gap 13 mmol/L (10-20); BUN (Urea Nitrogen) 50 mg/dL (8.4-25.7); Calc. Creatinine Clearance 41 mL/min (70-130); Calcium 6.4 mg/dL (7.8-10.44); Carbon Dioxide 16 mmol/L (23-31); Chloride 114 mmol/L (98-107); Glucose 78 mg/dL (83-110); Potassium 4.3 mmol/L (3.5-5.1); Sodium 139 mmol/L (136-145)
[2020-06-12 07:51] VITALS: BP 105/58; TEMP 98.5
--- NOTE | 2020-06-12 08:21 | PDOC.HOSPP ---
- Subjective Encounter Date: 06/12/20 Encounter Time: 08:05 Subjective: States he will be staying on for treatments. Continued SOB, numbness in hands, feet swollen (not edema?) Constipated, same as yesterday, nothing helps although pt states nurses have tried everything. No events through the night, disrupted sleep, denies n/v, - Objective Vital Signs & Weight: Vital Signs (12 hours) Temp Pulse Resp BP Pulse Ox 06/12/20 07:46 98.5 F 82 16 105/58 L 93 L Weight Weight 72.756 kg I&O: 06/11/20 06/12/20 06/13/20 06:59 06:59 06:59 Intake Total 605 3410 Output Total 100 175 Balance 505 3235 Result Diagrams: 06/09/20 03:28 06/12/20 06:24 Hospitalist ROS - Review of Systems Constitutional: denies: fever, chills, sweats, weakness, malaise, other Eyes: denies: vision change, eyelid inflammation, redness ENT: reports: other (No LAD). denies: ear pain, ear discharge, nose pain, nose discharge, nose congestion, mouth pain, mouth swelling, throat pain, throat swelling Respiratory: reports: shortness of breath. denies: cough, dry, hemoptysis, pleuritic pain, sputum, wheezing, other Cardiovascular: denies: chest pain, palpitations, orthopnea, paroxysmal noc. dyspnea, light headedness, other Gastrointestinal: reports: constipation, other. denies: nausea, vomiting, abdominal pain, diarrhea, melena, hematochezia Genitourinary: reports: other. denies: dysuria, frequency, incontinence, hematuria, retention Musculoskeletal: denies: neck pain, shoulder pain, arm pain, back pain, hand pain, leg pain, foot pain, other Skin: reports: other. denies: rash, lesions, donna, bruising Neurological: reports: numbness (Left lateral ulnar distribution of digit 5 slight numbness.). denies: weakness, incoordination, change in speech, confusion, seizures - Medication Medications: Active Medications Generic Name Dose Route Start Last Admin Trade Name Freq PRN Reason Stop Dose Admin Calcium Carbonate 500 mg 06/09/20 08:00 06/11/20 16:14 Calcium Carbonate 500 Mg Tab PO 500 mg BID-WM TANJA Administration Clopidogrel Bisulfate 75 mg 06/10/20 09:00 06/11/20 08:33 Clopidogrel Bisulfate 75 Mg Tab PO 75 mg DAILY TANJA Administration Sodium Chloride 1,000 mls @ 100 mls/hr 06/09/20 13:15 06/11/20 23:19 Normal Saline 0.9% IV 1,000 mls .Q10H TANJA Administration Levothyroxine Sodium 50 mcg 06/11/20 06:00 06/12/20 05:51 Levothyroxine Sodium 50 Mcg Tab PO 50 mcg 0600 TANJA Administration Multivitamins 1 tab 06/11/20 09:00 06/11/20 08:33 Multivit, Therapeutic 1 Tab PO 1 tab DAILY TANJA Administration Pantoprazole Sodium 40 mg 06/08/20 09:00 06/11/20 08:33 Pantoprazole 40 Mg Tab PO 40 mg DAILY TANJA Administration - Exam General Appearance: NAD, awake alert. negative: ill appearing Hosp A/P - Plan Abdominal US: metastatic disease. Multiple masses in the spleen and numerous liver masses. No gallstones. Gallbladder wall thickening. Focal nodularity in the gallbladder consistent with metastases. Mild ascites in the abdomen This is a 75 year old male with recurrent metastatic melanoma admitted for tumor lysis syndrome #Tumor Lysis syndrome #Acute Kidney Injury #Hyperkalemia - resolved - potassium has normalized. Creatinine 1.79 Continue IV fluids until creatinine has normalized Abdominal distension/Hepatomegaly - likely from liver metastases - uS abdomen showed multiple liver and splenic metastases. Also has possible gallbladder metastases. LFT shows elevated ALP and mild AST elevation of 46 Hypocalcemia - calcium 6.5, up from 5.9 yesterday. Hypermagnesemia - resolved Metastatic melanoma - is getting chemotherapy as an outpatient
[2020-06-12] MEDS: Multivit, Therapeutic 1 TAB PO SCH (08:22)
[2020-06-12] MEDS: Calcium Carbonate 500 MG TAB PO SCH (08:22)
[2020-06-12] MEDS: Clopidogrel Bisulfate 75 MG TAB PO SCH (08:22)
--- NOTE | 2020-06-12 08:45 | PDOC.MOPN ---
Interval History: Pt feeling well today. He had an explosive episode of diarrhea yesterday, but none since then. No nausea. Would like to go home. - Vital Signs Vital Signs: Vital Signs (12 hours) Temp Pulse Resp BP Pulse Ox 06/12/20 07:46 98.5 F 82 16 105/58 L 93 L Weight Weight 160 lb 6.4 oz - Physical Exam General: Alert, Oriented x3, Cooperative Lungs: Normal air movement Cardiovascular: Regular rate Neurological: Cranial nerves 3-12 NL Psych/Mental Status: Mood NL - Labs Result Diagrams: 06/09/20 03:28 06/12/20 06:24 Lab results: Laboratory Results - last 24 hr 06/12/20 06:24: Sodium 139, Potassium 4.3, Chloride 114 H, Carbon Dioxide 16 L, Anion Gap 13, BUN 50 H, Creatinine 1.56 H, Estimated GFR (MDRD) 43, Glucose 78 L, Calcium 6.4 L 06/11/20 09:21: Sodium 142, Potassium 4.2, Chloride 111 H, Carbon Dioxide 22 L, Anion Gap 13, BUN 56 H, Creatinine 1.79 H, Estimated GFR (MDRD) 37, Glucose 122 H, Calcium 6.5 L, Magnesium 2.3 A/P - Problem (1) Melanoma Current Visit: Yes Code(s): C43.9 - MALIGNANT MELANOMA OF SKIN, UNSPECIFIED Status: Acute (2) Tumor lysis syndrome Current Visit: Yes Code(s): E88.3 - TUMOR LYSIS SYNDROME Status: Acute - Plan Plan: Kidney function improved Ok to DC home Start allopurinol 300 mg qday, I sent to his pharmacy RTC next week for immunotherapy
--- NOTE | 2020-06-12 11:58 | PRG ---
DATE OF SERVICE: 06/12/2020 SUBJECTIVE: Patient was seen and examined at bedside and overnight events noted. Patient denies any shortness of breath or chest pain or palpitation. No history of nausea or vomiting or diarrhea or fever or chills or cramps. OBJECTIVE: General: This is a well-built male, in no apparent distress. Vital Signs: Temperature , pulse 82, respiratory rate 16, blood pressure 105/50. HEENT: Atraumatic, normocephalic. Oral mucosa is moist. Neck: Supple. Cardiovascular: S1, S2 heard. Rate and rhythm regular. Respiratory: Clear to auscultation. Gastrointestinal: Abdomen is soft. Musculoskeletal: No tenderness. No edema. Dermatologic: No skin rash. Neurologic: Alert and awake and oriented x3. No focal neurologic deficits. Moving all the extremities. Psychiatric: Mood and affect normal. LABORATORY DATA: Initial labs potassium 4.3, BUN is 50, creatinine is 1.5. ASSESSMENT AND PLAN: 1. Acute kidney injury on chronic kidney stage 3. 2. Edema. 3. History of hypertension. 4. Anemia of chronic disease. 5. Tumor lysis syndrome. 6. Hypocalcemia. The patient might be going home today. Advised to follow up with Dr. Dela Cruz in 1 week. Monitor labs closely. Monitor urine output and swelling. Job ID: [id number]
--- NOTE | 2020-06-12 16:10 | PDOC.DS.DS ---
Provider - Provider Date of Admission: 06/07/20 18:36 Date of Discharge: 06/12/20 Admitting Provider: Janina Bourgeois MD Consultations: Nephrology (Dr. Collin Tipton), Oncology (Dr. Nehemias Nguyen) Primary Care Physician: Janny Chin Course - Hospital Course Hospital Course: Discharge Diagnoses: 1. Tumor Lysis syndrome with history of metastatic melanoma to the liver, spleen, gallbladder, lung and spine 2. Acute Kidney Injury 3. Hyperkalemia 4. Hyperphosphatemia 5. Hypocalcemia 6. Diarrhea Brief HPI: This is a 75-year-old male with a past medical history of melanoma diagnosed 7 years ago with recurrent metastases diagnosed 5 weeks ago on chemotherapy who presented to his oncology clinic with generalized weakness. He was transferred to the ER after his labs showed hyperkalemia, hypocalcemia, hyperphosphatemia and acute kidney injury concerning for tumor lysis syndrome. Patient also uric acid of 12.6. He was given rasburicase and admitted for IV hydration Hospital Course: Tumor Lysis syndrome with RADHA, hyperkalemia, hyperphosphatemia, hypocalcemia: Patient presented with a potassium of 6.0, phosphorus 5.5, uric acid of 11.7, creatinine of 2.5, calcium of 6.3. The patient was treated with IV fluids. He was given calcium gluconate on a few occasions for hypocalcemia. He had no concerning symptoms aside from weakness. On the day of discharge, his creatinine improved to 1.5, potassium was 4.0, phosphorous 4.1 and uric acid was less than 2. He was seen by nephrology in consultation who recommended the patient get a repeat BMP in a week. Dr. Nguyen also consulted from oncology and will start the patient on allopurinol 300 mg daily for gout prophylaxis. He will follow him up in the clinic for further treatnent of his melanoma Diarrhea: the patient had stool cultures, ova and parasite and C diff testing which was negative. His diarrhea resolved at the time of discharge. Abdominal distension: the patient was noted to have hepatomegaly on exam. Abdominal US showed extensive liver and splenic metastases and some ascites. Consider outpatient follow up. Pertinent Studies: Abdominal US: metastatic disease. Multiple masses in the spleen and numerous liver masses. No gallstones. Gallbladder wall thickening. Focal nodularity in the gallbladder consistent with metastases. Mild ascites in the abdomen - Labs Lab Results: 06/09/20 03:28 06/12/20 06:24 Abnormal Lab Results - Last 48 hrs 06/10/20 15:42: Creatinine 1.94 H, Calcium 6.6 L 06/11/20 09:21: Chloride 111 H, Carbon Dioxide 22 L, BUN 56 H, Creatinine 1.79 H, Calcium 6.5 L 06/12/20 06:24: Chloride 114 H, Carbon Dioxide 16 L, BUN 50 H, Creatinine 1.56 H, Calcium 6.4 L Microbiology - Entire Visit 06/11/20 12:12 Stool Stool Culture - Preliminary 06/11/20 12:12 Stool Escherichia coli 0157 Culture - Final 06/11/20 12:12 Stool Rapid Parasite Screen - Final 06/11/20 12:12 Stool Campylobacter Antigen Assay - Final 06/11/20 12:12 Stool Shiga Toxin Test - Final 06/11/20 12:12 Stool C. difficile GDH Antigen & Toxins - Final - Physical Exam Vitals: Vital Signs (12 hours) Temp Pulse Resp BP Pulse Ox 06/12/20 07:46 98.5 F 82 16 105/58 L 93 L Weight Weight 160 lb 6.4 oz Physical Exam: The patient was seen and examined on the day of discharge. General Appearance: NAD, awake alert. negative: ill appearing ENT: normocephalic atraumatic Heart: RRR Respiratory: CTAB Gastrointestinal: non-tender, normal bowel sounds Gastrointestinal - other findings: abdomen distended with hepatomegaly Extremities: no cyanosis, no clubbing, no edema Skin: normal turgor, no lesions, no rashes Psychiatric: normal affect, normal behavior, A&O x 3 Problem - Discharge Plan Plan of Treatment: Follow up with PCP in a week, Dr. Nguyen in a week and Dr. Flores in a week with a repeat BMP. - Time spent with Patient (mins): 30 Plan - Discharge Medications Prescriptions: Metoprolol Tartrate [Lopressor] 12.5 mg PO DAILY #30 tab Home Medications: Medication Instructions Recorded Confirmed Type Atorvastatin Calcium 80 mg PO DAILY 04/15/20 06/07/20 History Cholecalciferol (Vitamin D3) 1,000 unit PO DAILY 04/15/20 06/07/20 History [Vitamin D3] Clopidogrel Bisulfate [Plavix] 75 mg PO DAILY 04/15/20 06/07/20 History Levothyroxine Sodium 50 mcg PO DAILY 04/15/20 06/07/20 History Multivitamin [Multi-Vitamin Daily] 1 tab PO DAILY 04/15/20 06/07/20 History Omeprazole 40 mg PO DAILY 04/15/20 06/07/20 History Ubidecarenone [CoQ-10] 200 mg PO DAILY 04/15/20 06/07/20 History Metoprolol Tartrate [Lopressor] 12.5 mg PO DAILY #30 tab 06/12/20 Rx Allergies: clindamycin Allergy (Verified 04/15/20 08:28) levofloxacin [From Levaquin] Allergy (Verified 04/15/20 08:28) - Discharge Instructions Discharge Instructions:: You presented with tumor lysis syndrome. Your potassium, phosphate and calcium were low. These have all normalized. Your kidney number has improved to 1.5. Normal for you is 1.1 to 1.5. Please hydrate well with water and get a repeat BMP in a week. Please stop your carvedilol and triamterene/hydrochlorothiazide since your blood pressure is low and your kidney function is still abnormal. I spoke to your operations and maintenance supervisor's office. THey recommended switching to metoprolol 12.5 mg daily instead. If your blood pressure is too low with this (< 90) or you feel dizzy or lightheaded, then don't take it. Follow up with your operations and maintenance supervisor in a week. You will be started on allopurinol 300 mg daily to prevent gout attacks You had some diarrhea possibly from the laxatives. Your stool cultures and C diff testing were negative. Follow up with your primary care doctor in a week. Activity:: Activity as Tolerated Nourishment:: Heart Healthy Diet - Follow up Plan Referrals: Jadyn Bassett MD [Primary Care Provider] - Disposition: HOME Quality - Care Measures CORE MEASURES:: N/A
--- NOTE | 2020-07-03 12:46 | EKG ---
Test Reason : Blood Pressure : / mmHG Vent. Rate : 066 BPM Atrial Rate : 066 BPM P-R Int : 170 ms QRS Dur : 074 ms QT Int : 420 ms P-R-T Axes : 048 014 051 degrees QTc Int : 440 ms Normal sinus rhythm Low voltage QRS Septal infarct , age undetermined Abnormal ECG Confirmed by DOMI Lee, ANAM ([id number]), newspaper editor ALEX DANIEL ([id number]) on 07/03/2020 12:46:26 PM Referred By: Confirmed By:ANAM DURON M.D.
== END 2020-06-12 11:32 | disposition home or self-care (01) | DRG 683 ==
LOC: ERS 01:15 → 2NO 18:36 → ONC 06-10 17:21
PROVIDERS: ADMIT Internal Medicine; ATTEND Internal Medicine
DX: E88.3 Tumor lysis syndrome (principal); C79.51 Secondary malignant neoplasm of bone; C78.7 Secondary malignant neoplasm of liver and intrahepatic bile duct; C78.00 Secondary malignant neoplasm of unspecified lung; C78.89 Secondary malignant neoplasm of other digestive organs; E87.2 Acidosis; R18.8 Other ascites; N17.9 Acute kidney failure, unspecified; E78.5 Hyperlipidemia, unspecified; Z96.643 Presence of artificial hip joint, bilateral; E87.5 Hyperkalemia; E83.51 Hypocalcemia; E03.9 Hypothyroidism, unspecified; E79.0 Hyperuricemia without signs of inflammatory arthritis and tophaceous disease; K59.00 Constipation, unspecified; M19.90 Unspecified osteoarthritis, unspecified site; I25.10 Atherosclerotic heart disease of native coronary artery without angina pectoris; D63.1 Anemia in chronic kidney disease; N18.30 Chronic kidney disease, stage 3 unspecified; I12.9 Hypertensive chronic kidney disease with stage 1 through stage 4 chronic kidney disease, or unspecified chronic kidney disease; Z88.1 Allergy status to other antibiotic agents; Z79.890 Hormone replacement therapy; Z95.5 Presence of coronary angioplasty implant and graft; Z87.891 Personal history of nicotine dependence; Z79.899 Other long term (current) drug therapy; Z79.01 Long term (current) use of anticoagulants; Z92.21 Personal history of antineoplastic chemotherapy; E83.41 Hypermagnesemia; R19.7 Diarrhea, unspecified; R16.0 Hepatomegaly, not elsewhere classified; Z20.822 Contact with and (suspected) exposure to COVID-19; C43.59 Malignant melanoma of other part of trunk; C43.4 Malignant melanoma of scalp and neck; I10 Essential (primary) hypertension
CPT/HCPCS: 36415; 80048; 80053; 80076; 81001; 81003; 82248; 82306; 82550; 83615; 83735; 84100; 84436; 84443; 84550; 85025; 85027; 87045; 87046; 87324; 87427; 87449; 87635; 93005; 93975; J2001; J2405; J2783; J3490; J7070; U0003; U0005

== ENCOUNTER 2020-06-21 03:32 | Observation (INO) | payer MEDICARE, BC ==
[2020-06-21 04:47] LABS: Hemoglobin 9.2 g/dL (14.0-18.0); Mean Corpuscular HGB CONC 32.2 g/dL (32.0-36.0); Mean Corpuscular Hemoglobin 29.7 pg (27.0-31.0); Mean Corpuscular Volume 92.2 fL (78.0-98.0); Mean Platelet Volume 9.2 fL (7.4-10.4); Platelet Count 293 thou/uL (130-400); RBC Distribution Width 19.6 % (11.5-14.5); Red Blood Cell (RBC) Count 3.09 mill/uL (4.70-6.10)
[2020-06-21 05:04] LABS: ALT (SGPT) 50 U/L (8-55); AST (SGOT) 87 U/L (5-34); Albumin 1.5 g/dL (3.4-4.8); Alkaline Phosphatase 551 U/L (40-110); Anion Gap 15 mmol/L (10-20); BUN (Urea Nitrogen) 76 mg/dL (8.4-25.7); Bilirubin, Total 1.1 mg/dL (0.2-1.2); Calc. Creatinine Clearance 0 mL/min (70-130); Calcium 6.4 mg/dL (7.8-10.44); Carbon Dioxide 19 mmol/L (23-31); Chloride 105 mmol/L (98-107); Globulin 3.4 g/dL (2.4-3.5); Glucose 83 mg/dL (83-110); Potassium 5.5 mmol/L (3.5-5.1); Protein, Total 4.9 g/dL (5.8-8.1); Sodium 133 mmol/L (136-145)
[2020-06-21 05:12] LABS: #Basophils 0.1 thou/uL (0.0-0.2); #Eosinphils 0.1 thou/uL (0.0-0.7); #Lymphocytes 1.2 thou/uL (1.20-3.40); #Monocytes 0.5 thou/uL (0.11-0.59); #Neutrophils 10.1 thou/uL (1.40-6.50); %Basophils 0.5 % (0.0-1.0); %Eosinophils 0.7 % (0.0-10.0); %Lymphocytes 10.2 % (21.0-51.0); %Monocytes 4.5 % (0.0-10.0); %Neutrophils 84.1 % (42.0-75.0); Band 3 % (5-11); Burr Cells MODERATE= 6-15 cells (100X) (0-1/hpf); Lymphocytes 9 % (21-51); MDiff Complete? YES; Monocytes 7 % (0-10); Neutrophil 81 % (42-75)
[2020-06-21] MEDS ORDERED: Acetaminophen 325 MG TAB PO PRN (08:23)
[2020-06-21] MEDS ORDERED: Ondansetron PF 4 MG/2 ML Vial IVP PRN (08:23)
[2020-06-21] MEDS ORDERED: Ondansetron ODT 4 MG TAB PO PRN (08:23)
[2020-06-21] MEDS ORDERED: Acetaminophen 650 MG Suppository PR PRN (08:23)
--- NOTE | 2020-06-21 08:31 | PDOC.HHP ---
Hospitalist HPI Generalized Weakness History of Present Illness: Mr. Sosa is a 75-year-old male with a past medical history of metastatic melanoma, GERD, hypothyroidism, hypertension, hyperlipidemia who presents to the hospital for generalized weakness. 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 Patient has been on immune checkpoint inhibitors, Yervoy and Opdivo. His last dose that I was able to find documentation was May 22. Patient of note patient had recent admission for tumor lysis syndrome approximately 2 weeks ago. This morning patient's family reports that patient has been very weak, tired and producing scant amounts of dark urine. Patient endorses mild shortness of breath denies chest pain, denies abdominal pain. Denies melena or hematochezia. No known Covid contacts. On initial presentation patient was refusing all care in the emergency room including an IV, however told a nurse he did not want to act on his DNR. Patient does have an out of hospital signed DNR. The emergency room initially contacted hospice for an evaluation. Extensive discussion was held with the patient about his code status due to conflicting reports. Patient reports that he does not want aggressive ICU level care. He does not want CPR or intubation and at this time is refusing a central line. He is agreeable to start an IV and receive IV fluids and other medications for comfort. This was discussed with patient and his daughter who is at the bedside. In emergency room initial vital signs 67/41, 63, 24, 98% on 4 L nasal cannula. WBC 12.0, H/H 9.2/28.5. BUN/CR 76/2.89, potassium 5.5, sodium 133. Calcium 6. 4. Alk phos elevated at 551, AST/ALT 87/50, T bili 1.1. Albumin low at 1.5. Since patient was initially refusing care he did not receive any medication in the emergency room. Allergies/Adverse Reactions: Allergy/AdvReac Type Severity Reaction Status Date / Time clindamycin Allergy Verified 04/15/20 08:28 levofloxacin [From Levaquin] Allergy Verified 04/15/20 08:28 Home Medications: Medication Instructions Recorded Confirmed Type Atorvastatin Calcium 80 mg PO DAILY 04/15/20 06/07/20 History Cholecalciferol (Vitamin D3) 1,000 unit PO DAILY 04/15/20 06/07/20 History [Vitamin D3] Clopidogrel Bisulfate [Plavix] 75 mg PO DAILY 04/15/20 06/07/20 History Levothyroxine Sodium 50 mcg PO DAILY 04/15/20 06/07/20 History Multivitamin [Multi-Vitamin Daily] 1 tab PO DAILY 04/15/20 06/07/20 History Omeprazole 40 mg PO DAILY 04/15/20 06/07/20 History Ubidecarenone [CoQ-10] 200 mg PO DAILY 04/15/20 06/07/20 History Metoprolol Tartrate [Lopressor] 12.5 mg PO DAILY #30 tab 06/12/20 Rx Past History: PMHx: Metastatic melanoma, hypertension, hyperlipidemia, hypothyroidism, GERD PSHx: Occipital melanoma resection in 2011 FHx: No family history of malignancy Social: Lives at home with ex-. Hospitalist HPI ROS Constitutional: reports: weakness, malaise. denies: fever, chills, sweats, other Eyes: denies: pain, vision change, conjunctivae inflammation, eyelid inflammation, redness, other ENT: denies: ear pain, ear discharge, nose pain, nose discharge, nose congestion, mouth pain, mouth swelling, throat pain, throat swelling, other Respiratory: denies: cough, dry, shortness of breath, hemoptysis, SOB with excertion, pleuritic pain, sputum, wheezing, other Cardiovascular: denies: chest pain, palpitations, orthopnea, paroxysmal noc. dyspnea, edema, light headedness, other Gastrointestinal: denies: nausea, vomiting, abdominal pain, diarrhea, constipation, melena, hematochezia, other Genitourinary: reports: retention. denies: dysuria, frequency, incontinence, hematuria, other Musculoskeletal: denies: neck pain, shoulder pain, arm pain, back pain, hand pain, leg pain, foot pain, other Skin: denies: rash, lesions, donna, bruising, other Neurological: denies: weakness, numbness, incoordination, change in speech, confusion, seizures, other Hospitalist Exam General Appearance: ill appearing General - other findings: Cachexia, lethargic Eye: PERRL, anicteric sclera ENT: dry oral mucosa Neck: supple, symmetric, no JVD Heart: RRR, no murmur, no gallops, no rubs, normal peripheral pulses Respiratory: CTAB, no wheezes, no rales, no ronchi, normal chest expansion, no tachypnea, normal percussion Gastrointestinal: soft, non-tender, normal bowel sounds, no palpable masses, no guarding, distended Extremities: 1+ LE edema Skin: tenting Skin - other findings: Pale Neurological: cranial nerve grossly intact, normal sensation to touch, no weakness, no focal deficits, no new deficit Musculoskeletal: normal tone, generalized weakness, diffuse muscle atrophy Psychiatric: normal affect, normal behavior, A&O x 3, lethargic Hospitalist Results Result Diagrams: 06/21/20 04:19 06/21/20 04:19 Lab results: Laboratory Last Values WBC 12.0 thou/uL (4.8-10.8) H 06/21/20 04:19 RBC 3.09 mill/uL (4.70-6.10) L 06/21/20 04:19 Hgb 9.2 g/dL (14.0-18.0) L 06/21/20 04:19 Hct 28.5 % (42.0-52.0) L 06/21/20 04:19 MCV 92.2 fL (78.0-98.0) 06/21/20 04:19 MCH 29.7 pg (27.0-31.0) 06/21/20 04:19 MCHC 32.2 g/dL (32.0-36.0) 06/21/20 04:19 RDW 19.6 % (11.5-14.5) H 06/21/20 04:19 Plt Count 293 thou/uL (130-400) 06/21/20 04:19 MPV 9.2 fL (7.4-10.4) 06/21/20 04:19 Neutrophils % 84.1 % (42.0-75.0) H 06/21/20 04:19 Neutrophils % (Manual) 81 % (42-75) H 06/21/20 04:19 Band Neuts % (Manual) 3 % (5-11) L 06/21/20 04:19 Lymphocytes % 10.2 % (21.0-51.0) L 06/21/20 04:19 Lymphocytes % (Manual) 9 % (21-51) L 06/21/20 04:19 Monocytes % 4.5 % (0.0-10.0) 06/21/20 04:19 Monocytes % (Manual) 7 % (0-10) 06/21/20 04:19 Eosinophils % 0.7 % (0.0-10.0) 06/21/20 04:19 Basophils % 0.5 % (0.0-1.0) 06/21/20 04:19 Neutrophils # 10.1 thou/uL (1.40-6.50) H 06/21/20 04:19 Lymphocytes # 1.2 thou/uL (1.20-3.40) 06/21/20 04:19 Monocytes # 0.5 thou/uL (0.11-0.59) 06/21/20 04:19 Eosinophils # 0.1 thou/uL (0.0-0.7) 06/21/20 04:19 Basophils # 0.1 thou/uL (0.0-0.2) 06/21/20 04:19 [place] Cells MODERATE= 6-15 cells (100X) (0-1/hpf) H 06/21/20 04:19 Sodium 133 mmol/L (136-145) L 06/21/20 04:19 Potassium 5.5 mmol/L (3.5-5.1) H 06/21/20 04:19 Chloride 105 mmol/L (98-107) 06/21/20 04:19 Carbon Dioxide 19 mmol/L (23-31) L 06/21/20 04:19 Anion Gap 15 mmol/L (10-20) 06/21/20 04:19 BUN 76 mg/dL (8.4-25.7) H 06/21/20 04:19 Creatinine 2.89 mg/dL (0.7-1.3) H 06/21/20 04:19 Estimated GFR (MDRD) 21 06/21/20 04:19 Glucose 83 mg/dL (83-110) 06/21/20 04:19 Calcium 6.4 mg/dL (7.8-10.44) L 06/21/20 04:19 Total Bilirubin 1.1 mg/dL (0.2-1.2) 06/21/20 04:19 AST 87 U/L (5-34) H 06/21/20 04:19 ALT 50 U/L (8-55) 06/21/20 04:19 Alkaline Phosphatase 551 U/L (40-110) H 06/21/20 04:19 Serum Total Protein 4.9 g/dL (5.8-8.1) L 06/21/20 04:19 Albumin 1.5 g/dL (3.4-4.8) L 06/21/20 04:19 Globulin 3.4 g/dL (2.4-3.5) 06/21/20 04:19 Albumin/Globulin Ratio 0.4 g/dL (1.2-2.2) L 06/21/20 04:19 Hospitalist H&P A/P Plan: Metastatic melanoma 75-year-old male past medical history of metastatic melanoma status post immune checkpoint inhibitors in April 2020. Patient has advanced end-stage metastatic cancer. Discussed case with oncology who has no treatment recommendations at this time. Oncology was discussing hospice options with family yesterday and hospice was supposed to visit patient at his home early this morning, however patient's partner brought him into the emergency room for weakness and lack of making urine. Unfortunately there are no treatment options for this advanced metastatic melanoma. Patient presented in tumor lysis syndrome secondary to rapid growth of his cancer. Discussed with oncology that this is too remote from his last immune checkpoint inhibitors which traditionally are not known to cause tumor lysis syndrome. Had multiple family discussions with patient, daughter and sons by phone. They would like to pursue comfort measures only at this time. They are still amenable to IV fluids. 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 Patient's cancer is very aggressive and rapidly progressing causing the tumor lysis syndrome. Potassium elevated to 5.5, calcium low to 6.4, BUN/CR 79/2.89. Will treat with IV fluids at this time. Discussed with patient and family poor prognosis, patient is refusing aggressive care at this time and would like to be made comfort measures only. Plan Comfort measures only IV fluids to make patient more comfortable Palliative care consult Extensive CODE STATUS discussion was held with family due to initial conflicting reports from emergency room. Patient initially refusing all care, but simultaneously requesting to be full code. Discussed patient's CODE STATUS further and he confirmed that he did not want CPR, intubation or central line. He did not want aggressive measures taken. Patient stated that he was okay with passing from his cancer, but did not want to of another preventable cause. Discussed with patient that his electrolyte abnormalities and tumor lysis syndrome is due to the aggressive nature of his cancer and that we are unable to fix the underlying problem with his metastatic melanoma. Discussed transitioning care goals from treatment to making him as comfortable as possible for as long time as he has left. Patient and family both consented and requested comfort measures be taken. I have discussed this on phone with patient's sons. I have also arranged patient's sons who have not been able to see him since they have been isolating since July due to Covid. They will be able to visit with patient as he is WELLNESS COACH status now. Will reach out to palliative care and hospice for further recommendations and advice on making patient as comfortable as possible in as many days as he has left. Case was discussed with attending physician Dr. Dallas who is in agreement with assessment and plan as above.
[2020-06-21 08:39] LABS: Calcium 6.3 mg/dL (7.8-10.44); Uric Acid Less than 2.0 mg/dL (3.5-7.2)
--- NOTE | 2020-06-21 08:39 | RAD ---
Chest AP view INDICATION: History of shortness of breath; history of melanoma COMPARISON: Chest 2 views dated September 12, 2012 FINDINGS: Lungs: There are bilateral reticular nodular opacities. There is perihilar airspace disease also pre sent. Cardiac silhouette: There is mild cardiomegaly Pulmonary vasculature: There is mild pulmonary vascular congestion Pleural spaces: There are small bilateral pleural effusions Upper abdomen: No abnormality seen. Osseous structures: Stable bone Additional findings: None. IMPRESSION: 1. Findings suspicious for mild cardiac decompensation or CHF. 2. Reticulonodular opacities affecting both lungs suspicious for diffuse metastatic disease.
[2020-06-21] MEDS ORDERED: Heparin 5,000 UNITS/ML VIAL SC SCH (09:00)
[2020-06-21] MEDS ORDERED: Sodium Chloride 0.9% 1,000 ML IV SCH (09:15)
[2020-06-21] MEDS ORDERED: Lorazepam 2 MG/ML VIAL SLOW IVP PRN (09:42)
[2020-06-21] MEDS ORDERED: Morphine 2 MG/ML VIAL SLOW IVP PRN (09:44)
[2020-06-21 11:09] VITALS: BMI 27.0
[2020-06-21 11:44] VITALS: BP 69/36; TEMP 97
--- NOTE | 2020-06-21 16:36 | PDOC.DS.DS ---
Provider Date of Admission: 06/21/20 05:40 Date of Discharge: 06/21/20 Admitting Provider: Rick Dallas MD Consultations: Other (Palliative care) Course Hospital Course: History of present illness on admission Mr. Sosa is a 75-year-old male with a past medical history of metastatic melanoma, GERD, hypothyroidism, hypertension, hyperlipidemia who presents to the hospital for generalized weakness. 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 Patient has been on immune checkpoint inhibitors, Yervoy and Opdivo. His last dose that I was able to find documentation was May 22. Patient of note patient had recent admission for tumor lysis syndrome approximately 2 weeks ago. This morning patient's family reports that patient has been very weak, tired and producing scant amounts of dark urine. Patient endorses mild shortness of breath denies chest pain, denies abdominal pain. Denies melena or hematochezia. No known Covid contacts. On initial presentation patient was refusing all care in the emergency room inc luding an IV, however told a nurse he did not want to act on his DNR. Patient does have an out of hospital signed DNR. The emergency room initially contacted hospice for an evaluation. Extensive discussion was held with the patient about his code status due to conflicting reports. Patient reports that he does not want aggressive ICU level care. He does not want CPR or intubation and at this time is refusing a central line. He is agreeable to start an IV and receive IV fluids and other medications for comfort. This was discussed with patient and his daughter who is at the bedside. In emergency room initial vital signs 67/41, 63, 24, 98% on 4 L nasal cannula. WBC 12.0, H/H 9.2/28.5. BUN/CR 76/2.89, potassium 5.5, sodium 133. Calcium 6.4. Alk phos elevated at 551, AST/ALT 87/50, T bili 1.1. Albumin low at 1.5. Since patient was initially refusing care he did not receive any medication in the emergency room. Brief Hospital course Mr. Sosa is a 75-year-old male with a past medical history of metastatic melanoma, GERD, hypothyroidism, hypertension, hyperlipidemia who initially presented for generalized weakness. Patient unfortunately was diagnosed with metastatic melanoma in March and has failed immunotherapy. Patient with recent admission for tumor lysis syndrome. Today he represented to the emergency room for generalized weakness found to have abnormal electrolytes consistent with again tumor lysis syndrome. Case was discussed with patient's primary oncology team who reports that they have no additional treatment options available for patient and that his tumor lysis syndrome is not secondary to immune checkpoint inhibitors but rather to progression of his tumor burden. Oncology team began outpatient hospice discussions with patient and family. Extensive CODE STATUS and goals of care discussion was had with patient and family. Patient confirmed that he did not want CPR, intubation or aggressive measures. Patient remained severely hypotensive in the emergency room despite fluid boluses. After further goals of care discussion with patient and family, patient elected to transition care to comfort measures only. Palliative care team saw patient who confirmed comfort measures only status and recommended inpatient hospice. [facility] hospice evaluated patient and this afternoon patient and family decided to transition to hospice. Patient was discharged from hospital observation to inpatient hospice. Comfort medications including as needed morphine, Zofran, Ativan were made available to patient. Resuscitation Status: 06/21/20 09:44 Resuscitation Status Routine Co-Sign Provider: Resuscitation Status: DNAR: NO Resuscitation Discussed with: Patient, Family, Attending Additional comments: Patient has out of hospital DNR. Lengthy discussion held with patient, family, and oncology about patient's condition and aggressive cancer. Patient and family have requested comfort measure only care. Lab Results: 06/21/20 04:19 06/21/20 04:19 Abnormal Lab Results - Last 48 hrs 06/21/20 04:19: Sodium 133 L, Potassium 5.5 H, Carbon Dioxide 19 L, BUN 76 H, Creatinine 2.89 H, Calcium 6.4 L, AST 87 H, Alkaline Phosphatase 551 H, Serum Total Protein 4.9 L, Albumin 1.5 L, Albumin/Globulin Ratio 0.4 L 06/21/20 04:19: WBC 12.0 H, RBC 3.09 L, Hgb 9.2 L, Hct 28.5 L, RDW 19.6 H, Neutrophils % 84.1 H, Neutrophils % (Manual) 81 H, Band Neuts % (Manual) 3 L, Lymphocytes % 10.2 L, Lymphocytes % (Manual) 9 L, Neutrophils # 10.1 H, [place] Cells MODERATE= 6-15 cells H 06/21/20 04:20: Uric Acid Less than 2.0 L, Calcium 6.3 L 06/21/20 04:20: Lactate Dehydrogenase 1848 H Vitals: Vital Signs (12 hours) Temp Pulse Resp BP BP Pulse Ox 06/21/20 11:47 97.0 F L 60 20 69/36 L 99 06/21/20 08:23 97.0 F L 60 20 69/36 L 99 Weight Weight 172 lb 7 oz Physical Exam: The patient was seen and examined on the day of discharge. Problem Plan of Treatment: Patient extremely hypotensive with metastatic end-stage melanoma and tumor lysis syndrome secondary to large tumor burden. Given patient's extremely poor prognosis and lack of treatment all options after discussion with oncology team, palliative care team, patient and family have elected to transition to inpatient hospice care. Patient's family, daughter and 2 sons at bedside. All questions answered to the best my ability. Plan Comfort measures only Inpatient hospice Case discussed with attending physician Dr. [place] who is in agreement with assessment and plan. Time Spent in discharge related activities (mins): 40 Plan Home Medications: Medication Instructions Recorded Confirmed Type Lorazepam [Ativan] 1 mg SLOW IVP Q4H PRN vial 06/21/20 Rx Morphine 2 mg SLOW IVP Q4H PRN vial 06/21/20 Rx Ondansetron HCl/PF [Zofran] 4 mg IVP Q6H PRN vial 06/21/20 Rx Ondansetron [Zofran ODT] 4 mg PO Q6H PRN tab 06/21/20 Rx Allergies: clindamycin Allergy (Verified 04/15/20 08:28) levofloxacin [From Levaquin] Allergy (Verified 04/15/20 08:28) Activity:: Activity as Tolerated Nourishment:: Regular Diet Disposition: HOSPICE MEDICAL FACILITY
== END 2020-06-21 18:26 | disposition hospice, inpatient (51) ==
LOC: ERS 03:32 → SUATTDRO 03:32 → T4-A 05:40
PROVIDERS: ADMIT Internal Medicine; ATTEND Internal Medicine
DX: C43.4 Malignant melanoma of scalp and neck (principal); C79.9 Secondary malignant neoplasm of unspecified site; E88.3 Tumor lysis syndrome; I95.9 Hypotension, unspecified; I10 Essential (primary) hypertension; E78.5 Hyperlipidemia, unspecified; E03.9 Hypothyroidism, unspecified; K21.9 Gastro-esophageal reflux disease without esophagitis; Z66 Do not resuscitate; Z87.891 Personal history of nicotine dependence; Z79.02 Long term (current) use of antithrombotics/antiplatelets; Z79.899 Other long term (current) drug therapy; Z88.1 Allergy status to other antibiotic agents
CPT/HCPCS: 71045; 80053; 82310; 83615; 84550; 85025; 93005; 99285; G0378 ×2; 36415

== ENCOUNTER 2020-06-21 18:31 | Inpatient (IN) | payer OTHER ==
[2020-06-21] MEDS ORDERED: Morphine 4 MG/ML VIAL ONE (19:20)
[2020-06-21] MEDS ORDERED: Lorazepam 2 MG/ML VIAL ONE (19:20)
[2020-06-21] MEDS ORDERED: Scopolamine 1.5 mg/72 hour Patch TOP PRN (20:00)
[2020-06-21] MEDS ORDERED: Ondansetron PF 4 MG/2 ML Vial IVP PRN (20:00)
[2020-06-21] MEDS ORDERED: Acetaminophen 650 MG Suppository PR PRN (20:00)
[2020-06-21] MEDS ORDERED: Haloperidol Lactate 5 MG/ML VIAL SLOW IVP PRN (20:00)
[2020-06-21] MEDS ORDERED: Morphine 2 MG/ML VIAL SLOW IVP PRN (20:04)
[2020-06-21 20:52] VITALS: BP 68/40; TEMP 97.3
[2020-06-21] MEDS: Lorazepam 2 MG/ML VIAL SLOW IVP SCH (21:01)
[2020-06-21] MEDS: Morphine 4 MG/ML VIAL SLOW IVP SCH (21:01)
[2020-06-22] MEDS: Morphine 4 MG/ML VIAL SLOW IVP SCH ×8 (00:10→14:17)
[2020-06-22] MEDS: Lorazepam 2 MG/ML VIAL SLOW IVP SCH ×4 (00:11→14:17)
== END 2020-06-22 11:10 | disposition expired | DRG 951 ==
LOC: T4-A 18:31
PROVIDERS: ADMIT Family Medicine; ATTEND Family Medicine
DX: Z51.5 Encounter for palliative care (principal); E88.3 Tumor lysis syndrome; C79.31 Secondary malignant neoplasm of brain; Z66 Do not resuscitate; K21.9 Gastro-esophageal reflux disease without esophagitis; E03.9 Hypothyroidism, unspecified; I10 Essential (primary) hypertension; E78.5 Hyperlipidemia, unspecified; Z88.1 Allergy status to other antibiotic agents; Z85.820 Personal history of malignant melanoma of skin; Z79.899 Other long term (current) drug therapy; Z79.02 Long term (current) use of antithrombotics/antiplatelets; Z79.890 Hormone replacement therapy
CPT/HCPCS: J2060; J2270